=== PATIENT | male | born 1965 | race Caucasian/White ===

== ENCOUNTER 2020-10-03 10:47 | Emergency (ER) | payer MEDICARE, SELFPAY | END 2020-10-03 12:00 | disposition home or self-care (01) | LOC: CSHERS 10:47 | DX: Z23 Encounter for immunization (principal) | CPT/HCPCS: 90471 ==

== ENCOUNTER → 2020-10-07 | Day surgery (SDC) | payer MEDICARE, SELFPAY ==
[~2020-10-07] MED LIST: Rabies Vaccine Human 2.5 UNITS VIAL ONE
== END ==
LOC: CSHER/OP 18:54
PROVIDERS: ATTEND Emergency Medicine
DX: Z29.14 Encounter for prophylactic rabies immune globulin (principal)
CPT/HCPCS: 90675

== ENCOUNTER 2021-11-22 12:10 | Outpatient (CLI) | payer OTHER | END 2021-11-22 12:11 | disposition home or self-care (01) | LOC: CSHCT 12:10 | PROVIDERS: ATTEND Family Medicine | DX: Z12.2 Encounter for screening for malignant neoplasm of respiratory organs (principal); F17.210 Nicotine dependence, cigarettes, uncomplicated | CPT/HCPCS: 71271 ==